=== PATIENT | female | born 1950 | race Caucasian/White ===

== ENCOUNTER 2022-09-09 07:18 | Outpatient (CLI) | payer MEDICARE ==
[2022-09-09] MEDS ORDERED: Iopamidol 300 61% 100 ML VIAL FS ONE (09:48)
== END 2022-09-09 07:19 | disposition home or self-care (01) ==
LOC: CSHCT 07:18
PROVIDERS: ATTEND Family Medicine
DX: R10.10 Upper abdominal pain, unspecified (principal); K76.0 Fatty (change of) liver, not elsewhere classified; K57.30 Diverticulosis of large intestine without perforation or abscess without bleeding; N28.1 Cyst of kidney, acquired; N28.9 Disorder of kidney and ureter, unspecified
CPT/HCPCS: 74160; 82565